=== PATIENT | female | born 1965 | race Caucasian/White ===

== ENCOUNTER → 2016-04-28 | Outpatient (CLI) | payer OTHER ==
--- NOTE | 2016-04-28 13:43 | MA ---
Screening Digital Mammogram with iCAD Clinical Indications: Routine screening. Technique: Standard cephalocaudal and mediolateral oblique projections were obtained. This examinat ion was processed by the iCAD computer aided detection system. Comparison: 2015, 2013, 2012, 2011 Breast density: 2; 25 to 50% Findings: CAD was reviewed. No suspicious findings are identified. No interval development of new suspicious calcification, mass, or architectural distortion. Impression: Benign. BI-RADS 2. Recommendation: Routine screening is recommended in one year. [facility] will send a result letter to the patient. Negative mammography should not preclude additional workup of a clinically suspicious finding. The patient's information is entered into a reminder system with a target due date for her next mammo gram.
== END ==
LOC: FIMAGING 12:34
DX: Z12.31 Encounter for screening mammogram for malignant neoplasm of breast (principal)
CPT/HCPCS: G0202

== ENCOUNTER → 2017-07-23 | Outpatient (CLI) | payer OTHER | LOC: FIMAGING 11:09 | PROVIDERS: ATTEND Obstetrics & Gynecology | DX: Z12.31 Encounter for screening mammogram for malignant neoplasm of breast (principal) ==

== ENCOUNTER → 2017-08-16 | Outpatient (CLI) | payer OTHER | LOC: FIMAGING 10:25 | PROVIDERS: ATTEND Obstetrics & Gynecology | DX: Z13.820 Encounter for screening for osteoporosis (principal); Z78.0 Asymptomatic menopausal state; Z82.62 Family history of osteoporosis ==

== ENCOUNTER 2018-01-11 11:18 | Day surgery (SDC) | payer OTHER ==
[2018-01-11] MEDS ORDERED: LR 1,000 ML IV ONE (11:54)
[2018-01-11] MEDS ORDERED: BUPIVACAINE 0.5% 30 ML SDV ONE (12:00)
--- NOTE | 2018-01-11 12:32 | PDGENHP ---
History & Physical Chief Complaint: Right thumb IP joint bone spur and mucous cyst History of Present Illness: Right thumb pain and swelling for months. Worse with time Pertinent Past, Social, Family History: nothing pertinent Relevant Physical Exam: swelling and tenderness right thumb IP joint Cardiorespiratory Assessment: resp and cardiovascular exam unremarkable
--- NOTE | 2018-01-11 12:38 | POSTOPPROG ---
Post Op Note Date of Operation: 01/11/18 Surgeon: Luis Alanis Practice Business Asst: none Anesthesiologist: none Anesthesia: Local (Specify) (Marcaine digital block) Pre-op Diagnosis: Mucous cyst and bone spur right thumb Post-op Diagnosis: same Indication: tenderness Procedure: excision bone spur and cyst Findings: mucous cyst and bone spur Inf/Abcess present in the surg proc area at time of surgery?: No Depth: Deep Incisional (Fascial) EBL: Minimal Total fluids administered: 100cc Complications: none Specimen(s): mucous cyst not sent
[2018-01-11] MEDS ORDERED: LIDOCAINE 1% 300 MG/30 ML SDV ONE ×2 (12:41)
[2018-01-11 13:44] VITALS: BP 122/46
--- NOTE | 2018-01-11 13:59 | GOP ---
DATE OF OPERATION: 01/11/2018 SURGEON: Luis Alanis MD PREOPERATIVE DIAGNOSIS: Right thumb IP joint mucous cyst and bone spur. POSTOPERATIVE DIAGNOSIS: Right thumb IP joint mucous cyst and bone spur. PROCEDURE PERFORMED: Excision of right IP joint mucous cyst and bone spur. 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 It was felt that excision of the mucous cyst, but also the bone spur, would be a good op tion for her. DESCRIPTION OF PROCEDURE: Under digital block anesthesia, using 5 mL of 0.5% plain Marcaine at the b ase of the right thumb, the thumb achieved adequate anesthesia. The right hand and forearm were prep ped and draped in the usual fashion, and the Karey drain tourniquet was applied at the base of the right thumb. A C shaped incision was made down the radial aspect of the thumb from the eponychial ar ea to the extensor creases, and then transversely at the extensor creases. The incision length in to alysia was about 1 inch. The skin flap was elevated ulnarly, and the mucous cyst was clearly identified . That was excised and was followed back to the IP joint, where there was very significant inflammato ry synovium in the joint. That was removed, along with the bone spur at the head of the proximal pha lanx. The joint was irrigated profusely with body temperature saline. There was a small bone spur d own the mid radial aspect of the joint, at the base of the distal phalanx, which was also removed. T he wound was then sutured using horizontal mattress sutures of 5-0 Prolene, and then a bulky soft pre ssure dressing was applied, held in place with Coban tape. It was not felt that splint mobilization was needed. Karey drain tourniquet removal resulted in immediate pinking of the digits. She was b rought to the recovery area, where detailed instructions were given prior to discharge. A prescripti on for Bailey and Keflex was provided. Followup arrangements in the office for about a week postop fo r dressing and suture removal, and remobilization exercises. The mucous cyst was not sent to patholo gy. It was typical in appearance. /[id number]/MODL
== END 2018-01-11 13:45 | disposition home or self-care (01) ==
LOC: FSGY 11:18
PROVIDERS: ATTEND Specialist
DX: M25.741 Osteophyte, right hand (principal); M71.341 Other bursal cyst, right hand

== ENCOUNTER → 2018-08-30 | Outpatient (CLI) | payer OTHER | LOC: FIMAGING 14:16 | PROVIDERS: ATTEND Obstetrics & Gynecology | DX: Z12.31 Encounter for screening mammogram for malignant neoplasm of breast (principal) ==